=== PATIENT | male | born 1990 ===

== ENCOUNTER 2018-01-07 15:26 | Emergency (ER) | payer SELFPAY ==
[~2018-01-07] VITALS: Ht 167.6 cm; Wt 88.9 kg
[2018-01-07 15:27] VITALS: BP 157/96
[2018-01-07] MEDS ORDERED: ALPR-475 PO (16:08)
== END 2018-01-07 16:26 | disposition home or self-care (01) ==
LOC: ED 16:00
DX: F41.1 Generalized anxiety disorder (principal)
CPT/HCPCS: 93005; 99284